=== PATIENT | female | born 2000 ===

== ENCOUNTER 2023-01-17 08:00 | Outpatient (CLI) | payer BC | END 2023-01-17 23:59 | disposition home or self-care (01) | LOC: LAB 08:00 | PROVIDERS: ATTEND Physician Assistant Medical | DX: J02.9 Acute pharyngitis, unspecified (principal); J34.89 Other specified disorders of nose and nasal sinuses | CPT/HCPCS: 87070 ==

== ENCOUNTER 2024-04-26 07:00 | Outpatient (CLI) | payer BC | END 2024-04-26 23:59 | disposition home or self-care (01) | LOC: LAB.S 07:00 | PROVIDERS: ATTEND Registered Nurse | DX: R31.9 Hematuria, unspecified (principal); R30.0 Dysuria; R82.4 Acetonuria; R82.79 Other abnormal findings on microbiological examination of urine | CPT/HCPCS: 87086; 87181 ==